=== PATIENT | female | born 1975 | race Caucasian/White ===

== ENCOUNTER 2016-10-22 15:36 | Emergency (ER) | payer OTHER ==
--- NOTE | 2016-10-22 16:09 | ER NURSING DOCUMENTATION ---
Nurse's Notes [facility] Name:Darcie Chávez Age:41 yrs Sex:Female :1975 Arrival Date:10/22/2016 Time:15:36 Bed1 Private MD: Diagnosis:Shoulder Sprain Presentation: 10/22 15:43 Acuity: DEENA 3 rh 15:46 Presenting complaint: Patient states: 2 HRS AGO FELL ON SNOW AND OUTSTRETCHED LEFT ARM lc INJURING LEFT SHOULDER AREA. FELT A CLICK TO AREA. NO DEFORMITY. NO HX OF PREVIOUS INJURY . Transition of care: Home. 15:46 Method Of Arrival: Private Vehicle lc Triage Assessment: 15:49 General: Appears uncomfortable, Behavior is cooperative. Pain: Complains of pain in lc anterior aspect of left shoulder Pain currently is 2 out of 10 on a pain scale. At worst was 8 out of 10 on a pain scale. Quality of pain is described as throbbing, Pain began 2 hours ago Aggravated by increased activity. Neuro: Level of Consciousness is awake, alert, Oriented to person, place, time, event. Musculoskeletal: Circulation, motion, and sensation intact Capillary refill < 3 seconds Range of motion limited in left shoulder. Historical: - Allergies: No known drug Allergies; - Home Meds: 1. Claritin Oral - PMHx: None; - PSHx: ; - Tetanus: < 10 years. - Ebola Screening: : Patient negative for fever greater than or equal to 101.5 degrees Fahrenheit, and additional compatible Ebola Virus Disease symptoms. Patient denies exposure to infectious person. Patient denies travel to an Ebola-affected area in the 21 days before illness onset. No symptoms or risks identified at this time. . - Immunization history: Flu Vaccine >1 year. - Social history: Smoking status: Patient states was never smoker of tobacco. Screenin:51 Infectious Disease Risk None. Abuse screen: Denies threats or abuse. Denies injuries lc from another. Nutritional screening: No deficits noted. Assessment: 15:51 See Triage Assessment done by same RN. Vital Signs: 15:44 BP 134 / 81; Pulse 107; Resp 16; Temp 99.0(O); Pulse Ox 90% on R/A; Weight 72.57 kg arc (R); Height 5 ft. 3 in. (160.02 cm) (R); Pain 3/10; 16:06 Pain 2/10; lc 15:44 Body Mass Index 28.34 (72.57 kg, 160.02 cm) [facility] ED Course: 15:43 Patient arrived in ED. [facility] 15:43 Triage completed. 15:44 Giancarlo Burris MD is Attending Physician. tl1 15:46 Marcelina Renee, RN is Primary Nurse. 15:51 Valuables Remains with patient Patient has correct armband on for positive lc identification. Placed in gown. Bed in low position. Call light in reach. Adult w/ patient. Ice pack to injury. 15:57 Sling applied to left arm. lc Administered Medications: No medications were administered Outcome: 15:53 Discharge ordered by . tl1 16:06 Discharged to home ambulatory, with significant other. 16:06 Condition: good 16:06 Discharge Assessment: Patient awake, alert and oriented x 3. No cognitive and/or functional deficits noted. Patient verbalized understanding of disposition instructions. 16:06 Discharge instructions given to patient, significant other, Instructed on discharge instructions, follow up and referral plans. medication usage, [facility] ROM OF SHOULDER Demonstrated understanding of instructions, medications, Prescriptions given X 2. 16:08 Patient left the ED. 06 17:55 Discharge F/U Call: Spoke with: patient. other: Name: pt states she still hurts. She st did not pickle solution maker the rx because she did not want to have troubles with the nausea. pt states she is going to fallow up with her PCP when she gets home. Signatures: Helen Valencia RN RN Marcelina Renee, ZHAO RN Giancarlo Burris MD MD tl1 Mehreen Schulz, Reg Reg [facility] Hohermiloess, Nila
--- NOTE | 2016-10-22 16:09 | ER PHYSICIAN DOCUMENTATION ---
Physician Documentation [facility] Name:Darcie Chávez Age:41 yrs Sex:Female :1975 Arrival Date:10/22/2016 Time:15:36 Bed1 Private MD: Giancarlo Zambrano Disposition: 10/24 05:38 Chart complete. tl1 Disposition: 10/22/16 15:53 Discharged to Home/Self Care. Impression: Shoulder Sprain. - Condition is Good. - Discharge Instructions: SPRAIN SHOULDER. - Prescriptions for [place] 5- 325 mg Oral - take 1 tablet by ORAL route every 6 hours As needed; 12 tablet. Zofran 4 mg Oral Tablet - take 1-2 tablet by ORAL route every 4-6 hours As needed; 10 tablet. - Medical Reconciliation form form. - Follow up: Private Physician; When: 4- 6 days; Reason: Recheck today's complaints, Continuance of care. - Problem is new. - Symptoms have improved. HPI: 10/22 15:44 This 41 yrs old Female presents to ER with complaints of Shoulder Injury. tl1 16:00 The patient or guardian complains of an injury. left shoulder. Context: The problem was tl1 sustained outdoors, She was walking next to a vertical rock wall, with her left hand extended over her head, and she lost her balance, leaning towards the left, when she tried to stabilize herself and felt a pain in her shoulder, that persists, and is worse with movement. No N/W/T. No other complaint.. Historical: - Allergies: No known drug Allergies; - Home Meds: 1. Claritin Oral - PMHx: None; - PSHx: ; - Tetanus: < 10 years. - Ebola Screening: : Patient negative for fever greater than or equal to 101.5 degrees Fahrenheit, and additional compatible Ebola Virus Disease symptoms. Patient denies exposure to infectious person. Patient denies travel to an Ebola-affected area in the 21 days before illness onset. No symptoms or risks identified at this time. . - Immunization history: Flu Vaccine >1 year. - Social history: Smoking status: Patient states was never smoker of tobacco. ROS: 16:00 MS/extremity: Positive for pain, of the anterior aspect of left shoulder and posterior tl1 aspect of left shoulder. 16:00 All other systems are negative. Exam: 16:00 Constitutional: This is a well developed, well nourished patient who is awake, alert, tl1 and in no acute distress. 16:00 Head/Face: Normocephalic, atraumatic. tl1 16:00 Cardiovascular: Rate: normal. 16:00 Respiratory: Respirations: normal. 16:00 Musculoskeletal/extremity: Extremities: grossly normal except: noted in the anterior aspect of left shoulder and posterior aspect of left shoulder: Joints: the left shoulder displays limited range of motion, painful range of motion, tenderness. 16:00 Skin: Exam negative for acute changes. Vital Signs: 15:44 BP 134 / 81; Pulse 107; Resp 16; Temp 99.0(O); Pulse Ox 90% on R/A; Weight 72.57 kg arc (R); Height 5 ft. 3 in. (160.02 cm) (R); Pain 3/10; 16:06 Pain 2/10; lc 15:44 Body Mass Index 28.34 (72.57 kg, 160.02 cm) arc MDM: 15:44 Patient medically screened. tl1 16:00 Data reviewed: vital signs, nurses notes, and as a result, I will discharge patient. tl1 Counseling: I had a detailed discussion with the patient and/or guardian regarding: the historical points, exam findings, and any diagnostic results supporting the discharge/admit diagnosis, the need for outpatient follow up, a hand specialist, a orthopedic surgeon, to return to the emergency department if symptoms worsen or persist or if there are any questions or concerns that arise at home. Dispensed Medications: No medications were administered Signatures: Marcelina Renee RN RN lc Leigh, Tom, MD MD tl1
== END 2016-10-22 16:09 | disposition home or self-care (01) ==
LOC: ER 15:36
DX: S43.402A Unspecified sprain of left shoulder joint, initial encounter (principal); W00.0XXA Fall on same level due to ice and snow, initial encounter; Y92.838 Other recreation area as the place of occurrence of the external cause; Y93.01 Activity, walking, marching and hiking
CPT/HCPCS: 99283